=== PATIENT | male | born 1960 | race Caucasian/White ===

== ENCOUNTER → 2018-09-25 07:12 | Outpatient (CLI) | payer OTHER, SELFPAY ==
[2018-09-25 10:57] LABS: Vitamin B12 407 pg/mL (211-911); Vitamin D,25 Hydroxy < 4.2 ng/mL (29.95-100.01)
[2018-09-25 11:10] LABS: ALB/GLOB Ratio 1.4 RATIO (0.9-2.4); AST(SGOT) 27 U/L (15-37); Alanine Aminotransfer ALT/SGPT 58 U/L (16-61); Albumin, Serum 3.8 g/dL (3.2-5.0); Alkaline Phosphatase 264 U/L (45-117); Anion Gap 7 (5-15); BUN 11 mg/dL (7-18); BUN/Creat Ratio 16.1 RATIO (10-20); Calcium,Total 6.3 mg/dL (8.5-10.1); Chloride 106 mmol/L (98-107); Cholesterol 123 mg/dL (200); Creatinine, Serum 0.68 mg/dL (0.70-1.30); EST Glomerular Filtration Rate 127 mL/min (>60); Est Glom Filt Rate - Afr Amer 154 mL/min (>60); Globulin 2.8 g/dL (2.2-4.2); Glucose 81 mg/dL (74-106); High Density Lipoprotein 61 mg/dL; Iron 49 ug/dL (65-175); Phosphorus 3.4 mg/dL (2.5-4.9); Potassium 3.5 mmol/L (3.5-5.1); Protein, Total 6.6 g/dL (6.4-8.2); Sodium Level 142 mmol/L (136-145); Triglycerides 68 mg/dL; Very Low Density Lipoprotein 14 mg/dL (5-40)
[2018-09-25 11:14] LABS: PTHIN 585.4 pg/mL (18.4-80.1)
[2018-09-29 17:06] LABS: Zinc, Plasma or Serum 59 ug/dL (56-134)
== END ==
PROVIDERS: Family Provider Family Medicine; PCP Family Medicine; Referring Provider Family Medicine; Visit Provider Family Medicine
DX: Z98.84 Bariatric surgery status (principal); Z13.220 Encounter for screening for lipoid disorders
CPT/HCPCS: 36415; 80053; 80061; 82306; 82607; 82746; 83540; 83970; 84100; 84590; 84630

== ENCOUNTER 2018-09-25 12:00 | Emergency (ER) | payer OTHER, SELFPAY ==
[2018-09-25 12:01] VITALS: BP 123/65; PULSE 68; RESP 18; TEMP 36.7; O2SAT 100; BMI 26.2
--- NOTE | 2018-09-25 12:32 | EKG12_ITS ---
Test Reason : ABD PAIN Blood Pressure : / mmHG Vent. Rate : 065 BPM Atrial Rate : 065 BPM P-R Int : 128 ms QRS Dur : 096 ms QT Int : 444 ms P-R-T Axes : 043 018 039 degrees QTc Int : 461 ms Normal sinus rhythm Normal ECG Confirmed by SARAH BANKS, SASHA ([id number]), communications editor MYA COHEN ([id number]) on 09/29/2018 1:37:06 PM Referred By: Darrius Arrieta Confirmed By:SASHA SMITH MD
--- NOTE | 2018-09-25 12:36 | PCA ---
NO OLD EKG
[2018-09-25] MEDS: Calcium Carbonate 500 MG Tablet 1000 MG PO (12:49)
--- NOTE | 2018-09-25 12:59 | ED.VISSUMM ---
- ER Visit Summary Date of Service: 09/25/18 Chief Complaint: [Abnormal lab values] History of Present Illness: The patient is a 58 M [presents the emergency department at the request of his PCPs office. Patient was seen yesterday for the first time by Dr. Arrieta and he had mentioned that he is been having cramping in his back and extremities as well as some intermittent numbness and tingling in his fingertips. Patient had blood work performed today and he was called and told that his calcium level was very low and the come to the emergency department. Patient otherwise asymptomatic at this time. He has no medical history. Patient did undergo gastric bypass years ago. He has not had any thyroid issues.] Patient also noted to have a high PTH level of 585. Physical Examination: [HEENT-PERRLA, EOMI. Cranial nerves II through XII grossly intact. TMs clear. Mucous membranes moist. No adenopathy. Negative [place] sign Cardiovascular-regular rate and rhythm without murmur or ectopy Lungs-clear to auscultation, chest wall stable without crepitus or subcu emphysema Abdomen-normoactive bowel sounds, soft, nontender, no rebound or rigidity, no peritoneal signs. Extremities-intact ?4, normal range of motion, normal pulses, atraumatic. She was no carpal pedal spasm noted.] Test Results: [EKG obtained was normal. No signs of hypocalcemia] Emergency Department Course and Treatment: [Patient was given thousand mill grams of calcium p.o.] Treatment Plan: [Patient advised to take Tums 3 times a day and thousand milligrams each time discharged home in stable condition] Disposition: [Discharged home stable condition] Impression: [Hypocalcemia Hypoparathyroidism] This note was generated with [employer] software. It may contain incorrect words, spelling, and punctuation that were not noted in review of the chart prior to signing ED Disposition - Plan for ED Patient: Referrals: Darrius Arrieta MD [Primary Care Provider] -
--- NOTE | 2018-09-25 13:02 | ED.DCSUM_ITS ---
- ER Visit Summary Date of Service: 09/25/18 Chief Complaint: [Abnormal lab values] History of Present Illness: The patient is a 58 M [presents the emergency department at the request of his PCPs office. Patient was seen yesterday for the first time by Dr. Arrieta and he had mentioned that he is been having cramping in his back and extremities as well as some intermittent numbness and tingling in his fingertips. Patient had blood work performed today and he was called and told that his calcium level was very low and the come to the emergency department. Patient otherwise asymptomatic at this time. He has no medical history. Patient did undergo gastric bypass years ago. He has not had any thyroid issues.] Patient also noted to have a high PTH level of 585. Physical Examination: [HEENT-PERRLA, EOMI. Cranial nerves II through XII grossly intact. TMs clear. Mucous membranes moist. No adenopathy. Negative [place] sign Cardiovascular-regular rate and rhythm without murmur or ectopy Lungs-clear to auscultation, chest wall stable without crepitus or subcu emphyse ma Abdomen-normoactive bowel sounds, soft, nontender, no rebound or rigidity, no peritoneal signs. Extremities-intact ?4, normal range of motion, normal pulses, atraumatic. She was no carpal pedal spasm noted.] Test Results: [EKG obtained was normal. No signs of hypocalcemia] Emergency Department Course and Treatment: [Patient was given thousand mill grams of calcium p.o.] Treatment Plan: [Patient advised to take Tums 3 times a day and thousand milligrams each time discharged home in stable condition] Disposition: [Discharged home stable condition] Impression: [Hypocalcemia Hypoparathyroidism] This note was generated with [employer] software. It may contain incorrect words, spelling, and punctuation that were not noted in review of the chart prior to signing ED Disposition - Plan for ED Patient: Referrals: Darrius Arrieta MD [Primary Care Provider] -
--- NOTE | 2018-09-25 13:03 | ED.DEP ---
ED Disposition - Plan for ED Patient: Instructions: ED Hypocalcemia, Parathyroid Hormone Prescriptions: Calcium Carbonate [Tums] 1,000 mg PO TIDCM #90 tab Referrals: Darrius Arrieta MD [Primary Care Provider] - 3-5 Days
[2018-09-25 13:26] VITALS: BP 123/81; PULSE 72; RESP 16; O2SAT 100
== END 2018-09-25 13:27 | disposition home or self-care (01) ==
PROVIDERS: Emergency Provider Emergency Medicine; Family Provider Family Medicine; PCP Family Medicine
DX: E83.51 Hypocalcemia (principal); E20.9 Hypoparathyroidism, unspecified
CPT/HCPCS: 93005; 99283

== ENCOUNTER 2018-11-20 07:39 | Day surgery (SDC) | payer OTHER, SELFPAY ==
[2018-10-14 09:35] VITALS: BMI 26.2
--- NOTE | 2018-11-19 23:42 | HP.PCM_ITS ---
History and Physical Date of Admission: 11/20/18 HISTORY OF PRESENT ILLNESS 58 year old man presents with a painful firm mass superior helical rim right ear that has increased in size over the last several months. He states he had cut his ear in the past with his razor and over time this firm mass enlarged. He denies fever. He denies any drainage or bleeding. He denies any infection. He presents at this time for further evaluation and treatment. PAST MEDICAL HISTORY Back problem PAST SURGICAL HISTORY gastric bypass ALLERGIES metoclopramide [From Reglan] MEDICATIONS Calcium Carbonate [Tums] methocarbamol FAMILY HISTORY Mother - Hypertension Father - Hypertension, Heart disease Brother - Alcoholism SOCIAL HISTORY Smoking Status: Never smoker alcohol intake: never substance use type: does not use REVIEW OF SYSTEMS General - Denies fever, fatigue, and weight loss. Eyes - Denies cataracts and glaucoma. ENT - Denies nasal congestion and sore throat. Endocrine - Denies excessive thirst and urination. Has heat and cold intolerance. Skin - Denies skin cancer. Has enlarging firm mass superior helical rim right ear. Musculoskeletal - Has joint pain, joint stiffness, back pain, and arthritis. Neuro - Denies headaches. Cardiovascular - Denies chest pain, fatigue, and shortness of breath with exertion. Psych - Denies anxiety and depression. Respiratory - Denies chronic cough and shortness of breath. Gastrointestinal - Denies nausea, vomiting, and constipation. Has diarrhea related to gastric bypass. Hematologic - Denies abnormal bruising and bleeding. Genitourinary - Denies hematuria and urinary frequency. PHYSICAL EXAMINATION General - Alert and Oriented HEENT - PERRL. EOMI. Throat is clear. On the superior helical rim right ear is a firm mass. It extends into the scapha. Measures 14 mm. It is nodular and bilobed. Appears adherent to the underlying cartilage. Some adherence to the overlying skin with some erythema and intermittent scabbing on the superior portion of the mass. Mild tenderness to palpation. No ulceration. Neck - Supple and nontender. No cervical adenopathy. No suspicious lesions noted. Lungs - Clear to auscultation. Heart - Regular rate and rhythm. Abdomen - Soft and nondistended. Extremities - FROM. No axillary adenopathy. Radial pulses are palpable. No suspicious lesions noted. Neuro - CN II-XII grossly intact. Psych - Normal mood and affect. ASSESSMENT 1. 14 mm painful cartilaginous mass superior helical rim right ear. 2. Possible cauliflower ear deformity right ear. 3. 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 PLAN The painful firm mass appears cartilaginous in nature. Some of the overlying skin has some erythema. It doesn't appear infectious, more of a pressure hyperemia. Could be a cauliflower ear deformity versus chondrodermatitis nodularis helicis versus basal cell carcinoma. Recommend excision of this mass and send it to Pathology for analysis to rule out carcinoma. Depending on how much overlying skin is removed, a skin graft may be needed. Surgery would be done on an outpatient basis under local anesthesia and IV sedation. If carcinoma is present, complex ear reconstruction may be needed with a probable two stage postauricular flap and cartilage grafting for support. The second stage would be 3 weeks later which is a division and inset of the flap. Skin graft or skin flap may be needed for the donor site. Complex ear reconstruction would be under general anesthesia with a possible surgical observation overnight stay in the hospital. Patient was informed of the risks and complications of the procedure including alternatives to surgery. These were discussed with the patient personally. Patient voices understanding and wishes to proceed. Some of the risks and complications were included in a form from the [place] [employer].
--- NOTE | 2018-11-20 | MASS_PTH ---
PATIENT: LACY ORTEGA LOC: [facility] [place] U#:[id number] AGE/SX: 58/M ROOM: RE11/20/[address]: Dr. Bj Hardy MD : 1960 BED: DIS: 11/20/2018 SPEC #: [id number] RECD: 11/20/18 09:01 STATUS: KRISTIE REIrvin #: [id number] SHELBIE: 11/20/18 00:[address]: Bj Hardy DEPT: SURGICAL PATHOLOGY RECD BY: Laura Carson ENTERED: 11/20/18 09:41 SP TYPE: Mass OTHR DR: Dr. Quinn Arrieta MD Tissues: A - [place] of ear B - [place] of ear Procedures: Frozen Section (charge) Surgery Specimen Level IV HEADER OPERATION: Excision soft tissue mass superior helical rim, right ear, frozen section PRE-OP DIAGNOSIS: 14 mm painful cartilaginous mass superior helical rim right ear TISSUE SUBMITTED: A - Cartilaginous mass superior helical rim right ear, frozen section, B - Chondrodermatitis nodularis helicis right ear FROZEN SECTION DIAGNOSIS A. Cartilaginous mass, superior helical rim right ear: Features favor chondrodermatitis nodularis. CE:bridget 11/20/18 MICROSCOPIC DIAGNOSIS A. Cartilaginous mass, superior helical right ear: Skin with hyperkeratosis. Underlying cartilage with degenerative and reactive changes. Negative for malignancy. B. 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 Negative for malignancy. SJ:bridget 11/23/18 COMMENT Case has been reviewed in consultation with Dr. Cartagena who concurs with the above diagnosis. IDC:AM MICROSCOPIC DESCRIPTION Slides are reviewed. GROSS DESCRIPTION A - Received fresh for frozen section labeled with the patient's name is a specimen designated cartilaginous mass superior helical rim right ear. The specimen consists of a reddish-pink segment of skin measuring 0.9 x 0.3 x 0.2 cm. The specimen is totally submitted in one cassette. / CE:bridget 11/20/18 B - Received in fixative is one container labeled with the patient's name and designated chondro-dermatitis nodularis helicis. The specimen consists of multiple irregular fragments terry-pink soft tissue and skin that in aggregate measure 2 x 1 x 0.4 cm. The specimen is totally submitted in two cassettes. / CE:bridget 11/20/18 TC:5 CPT: 71969 x2, 55696
[2018-11-20 08:00] VITALS: BP 129/80; PULSE 67; RESP 16; TEMP 36.6; O2SAT 97; BMI 25.5
[2018-11-20] MEDS: Mupirocin Ointment 22gm Tube 1 APPLIC (09:50)
--- NOTE | 2018-11-20 10:03 | OP.PCM_ITS ---
Report of Operation Date of Procedure: 11/20/18 Pre-Operative Diagnosis: 1. 14 mm painful cartilaginous mass superior helical rim right ear. 2. Possible cauliflower ear deformity right ear. 3. 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 Description of Surgical Findings:: 58 year old man presents with a painful firm mass superior helical rim right ear that has increased in size over the last several months. He states he had cut his ear in the past with his razor and over time this firm mass enlarged. He denies fever. He denies any drainage or bleeding. He denies any infection. Patient was informed of the risks and complications of the procedure including alternatives to surgery. These were discussed with the patient personally. Patient voices understanding and wishes to proceed. Some of the risks and complications were included in a form from the [employer] [place] [employer]. Frozen section superior helical rim right ear - Chondrodermatitis nodularis helicis and no carcinoma seen. 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 Specimen's removed: 1. Painful cartilaginous mass superior helical rim right ear to Pathology as a frozen section. 2. 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 Drains: None. Estimated Blood Loss (mL): 20 ml. Description of Procedure: Patient was taken to OR in supine position and was given IV sedation. The right ear and right neck areas were prepped and draped in the usual fashion. SCD's were placed for DVT prophylaxis. Perioperative antibiotics were given intravenously. The right ear was infiltrated with xylocaine and epinephrine regional auricular block. After waiting 5 minutes for the anesthetic to take effect, I made a longitudinal incision over the cartilaginous mass on the superior helical rim. The area of redness and scabbing was excised with an ellipse which incorporated into longitudinal incision. The overlying skin and some of the underlying cartilage was excised and sent to Pathology as a frozen section for analysis to rule out carcinoma. Frozen section showed chondrodermatitis nodularis helicis and no carcinoma was seen. So the rest of the cartilaginous mass will be excised. The cartilaginous mass was also adherent to the posterior skin as well. A small ellipse of skin was also included with the excision. Once the remaining cartilaginous mass was excised, it was sent to Pathology for analysis to rule out carcinoma. A small cartilaginous defect remaining was sutured with 5-0 Monocryl horizontal mattress sutures. Hemostasis was obtained with electrocautery. I was able to dissect the cartilaginous mass off the skin so no more skin needed to be removed. So no skin graft will be needed today. The wounds on both the anterior ear and posterior ear were closed with 5-0 Monocryl simple interrupted sutures and vertical mattress sutures. Antibiotic ointment was applied to the suture lines followed by Xeroform gauze and cotton balls soaked in saline and secured with 4-0 Nylon stent suture dressing. Patient tolerated the procedure well and was sent to PACU in satisfactory condition. Patient will be sent home on antibiotics and pain medication. He will keep his head elevated during the initial postop period. Patient will followup in a week for a wound check and for discussion of the pathology report. Grafts/Implants Used: None. - Complications None. - Admit VTE Documentation VTE Present on Admission: No VTE Mechan Device Prophylaxis: SCD's VTE Pharm Prophylaxis ordered?: No Code Visit Surgery Charges CPT - 76397 ICD-10 - H61.001
[2018-11-20 10:06] VITALS: BP 118/68; BP 129/80; PULSE 74; RESP 20; TEMP 36.3; O2SAT 99
[2018-11-20 10:10] VITALS: BP 119/66; BP 129/80; PULSE 72; RESP 20; O2SAT 98
--- NOTE | 2018-11-20 10:13 | DCINST_ITS ---
You will use the following diet at home:: No restrictions Discharge Activity: May not drive while taking narcotic pain medications., May Shower - in two days, - - keep head elevated. no heavy lifting. May shower in (days): 2 May resume sexual activity in: No Restrictions Weight Bearing Status: Weight bearing as tolerated Lifting Restrictions: 20 lbs. Keep extremity elevated above heart level: - - elevate head. Call your doctor if your incision/area has: Continuous Slow Oozing, Sudden Increased Bleeding, Increased Pain/ Swelling, Increased Redness, Foul Smelling Discharge, Swelling at the incision site Call your doctor if you observe: Fever of 101 or Higher, Coldness, Increased Pain, Shortness of breath, Chest pain, Calf discomfort, Uncontrolled pain Suture Line Care: - - after operative dressing removed, apply antibiotic ointment to suture line daily. Change Dressing in (Days):: 3 - will change ear dressing in the office. Cleanse incision/area with: - - may shower in two days. minimize getting the ear dressing wet in the shower until the ear dressing is removed in the office. Allergies/Adverse Reactions: Allergies metoclopramide [From Reglan] Adverse Reaction (Severe, Verified 11/13/18 13:49) severe agitation/irene Medications to take at Discharge Calcium Carbonate [Tums] 1,000 mg PO TIDCM #90 tab 09/25/18 Oxycodone HCl/Acetaminophen [Percocet 5/325] 1 tab PO Q4H PRN PRN 7 Days #40 tab 11/20/18 levoFLOXacin tablet [Levaquin tablet] 500 mg PO DAILY #7 tab 11/20/18 The following prescriptions were given: levoFLOXacin tablet [Levaquin tablet] 500 mg PO DAILY #7 tab Prescription Printed Oxycodone HCl/Acetaminophen [Percocet 5/325] 1 tab PO Q4H PRN PRN 7 Days #40 tab PRN Reason: Pain Prescription Printed Primary Care Physician: Darrius Arrieta MD [Primary Care Provider] - Test Results: Test results from this visit will be discussed in further detail at your follow- up appointment, if applicable. Please Follow Up With: Bj Hardy MD When: Friday11/23/18. call [phone] for appt. Proposed Discharge Date: 11/20/18
[2018-11-20 10:15] VITALS: BP 129/80; BP 130/64; PULSE 66; RESP 16; TEMP 36.3; O2SAT 99
[2018-11-20] MEDS: Acetaminophen 325 MG Tablet PO (10:57)
[2018-11-20] MEDS: oxyCODONE 5 MG Tablet PO (10:58)
[2018-11-20 11:02] VITALS: BP 129/80
== END 2018-11-20 11:24 | disposition home or self-care (01) ==
LOC: SDC 07:39 → AC 07:40
PROVIDERS: Family Provider Family Medicine; PCP Family Medicine; Referring Provider Surgery; Visit Provider Surgery
PROC: (CPT 11442; principal; 2018-11-20 08:25)
DX: H61.001 Unspecified perichondritis of right external ear (principal)
CPT/HCPCS: 00300; 11442; 88304; 88305; 88331; J7120

== ENCOUNTER → 2019-02-09 15:05 | Outpatient (CLI) | payer OTHER, SELFPAY ==
[2018-11-25 10:32] VITALS: BMI 25.5
[2019-02-09 17:47] LABS: Erythrocyte Sedimentation Rate < 1 mm/hr (0-20)
[2019-02-09 17:50] LABS: Anion Gap 10 (5-15); BUN 21 mg/dL (7-18); BUN/Creat Ratio 22.2 RATIO (10-20); Calcium,Total 7.9 mg/dL (8.5-10.1); Chloride 108 mmol/L (98-107); Creatinine, Serum 0.95 mg/dL (0.70-1.30); EST Glomerular Filtration Rate 87 mL/min (>60); Est Glom Filt Rate - Afr Amer 106 mL/min (>60); Ferritin 127 ng/mL (26-388); Glucose 85 mg/dL (74-106); Iron 91 ug/dL (65-175); Magnesium 2.3 mg/dL (1.6-2.6); Potassium 3.4 mmol/L (3.5-5.1); Sodium Level 143 mmol/L (136-145)
== END ==
PROVIDERS: Family Provider Family Medicine; PCP Family Medicine; Referring Provider Family Medicine; Visit Provider Family Medicine
DX: R25.2 Cramp and spasm (principal); Z98.84 Bariatric surgery status
CPT/HCPCS: 36415; 80048; 82728; 83540; 83735; 85652

== ENCOUNTER → 2019-08-20 09:38 | Outpatient (CLI) | payer OTHER, SELFPAY ==
[2018-11-25 10:32] VITALS: BMI 25.5
[2019-08-20 12:38] LABS: Hematocrit 48.7 % (40-54); Hemoglobin 15.9 g/dL (13.0-16.5); Mean Corp Hgb Conc 32.6 g/dL (32-36); Mean Corpuscular Hgb 29.5 pg (27.0-32.0); Mean Corpuscular Volume 90.4 fL (80-94); Mean Platelet Vol. 10.8 fl (6.2-12.0); Platelet Count 234 K/mm3 (150-450); RBC Distribution Width CV 12.5 % (11.6-14.6); RBC Distribution Width SD 41.1 fl (35.1-43.9); Red Blood Count 5.39 M/mm3 (4.6-6.2)
[2019-08-20 13:09] LABS: ALB/GLOB Ratio 1.3 RATIO (0.9-2.4); AST(SGOT) 40 U/L (15-37); Alanine Aminotransfer ALT/SGPT 86 U/L (16-61); Albumin, Serum 3.9 g/dL (3.2-5.0); Alkaline Phosphatase 218 U/L (45-117); Anion Gap 8 (5-15); BUN 13 mg/dL (7-18); BUN/Creat Ratio 14.8 RATIO (10-20); Calcium,Total 7.7 mg/dL (8.5-10.1); Chloride 106 mmol/L (98-107); Creatinine, Serum 0.88 mg/dL (0.70-1.30); EST Glomerular Filtration Rate 95 mL/min (>60); Est Glom Filt Rate - Afr Amer 115 mL/min (>60); Ferritin 98 ng/mL (26-388); Globulin 3.1 g/dL (2.2-4.2); Glucose 84 mg/dL (74-106); Iron 119 ug/dL (65-175); Magnesium 2.2 mg/dL (1.6-2.6); PSA,Total - Annual Screen 0.49 ng/mL (0.00-4.00); Phosphorus 4.1 mg/dL (2.5-4.9); Potassium 3.3 mmol/L (3.5-5.1); Sodium Level 140 mmol/L (136-145); Thyroid Stim Hormone (TSH) 1.69 uIU/mL (0.358-3.74)
[2019-08-20 13:15] LABS: PTHIN 574.3 pg/mL (18.4-80.1)
[2019-08-20 13:21] LABS: Vitamin B12 410 pg/mL (211-911); Vitamin D,25 Hydroxy 9.7 ng/mL
== END ==
LOC: MFPLAB 09:38
PROVIDERS: PCP Family Medicine; Referring Provider Family Medicine; Visit Provider Family Medicine
DX: Z00.00 Encounter for general adult medical examination without abnormal findings (principal); E83.51 Hypocalcemia; R25.2 Cramp and spasm; Z12.5 Encounter for screening for malignant neoplasm of prostate; Z98.84 Bariatric surgery status
CPT/HCPCS: 36415; 80053; 82306; 82330; 82607; 82728; 83540; 83735; 83970; 84100; 84153; 84443; 85027; G0103